=== PATIENT | male | born 1940 | race Caucasian/White ===

== ENCOUNTER → 2017-12-13 | Outpatient (CLI) | payer MEDICAID, OTHER ==
[~2017-12-13] MED LIST: ALLO300T PO; ATEN25TA PO; FINA5TAB4 PO; LISI-167 PO; LOVA40TA2 PO; NABU750T PO
== END | disposition home or self-care (01) ==
LOC: RAD 11:02
PROVIDERS: ATTEND Internal Medicine Cardiovascular Disease
DX: K44.9 Diaphragmatic hernia without obstruction or gangrene (principal); R55 Syncope and collapse; R00.1 Bradycardia, unspecified
CPT/HCPCS: 71046

== ENCOUNTER 2018-06-07 14:27 | Emergency (ER) | payer OTHER ==
[~2018-06-07] VITALS: Ht 172.7 cm; Wt 81.0 kg
[2018-06-07 16:36] VITALS: BP 140/86
== END 2018-06-07 16:39 | disposition home or self-care (01) ==
LOC: ED 16:33
DX: S16.1XXA Strain of muscle, fascia and tendon at neck level, initial encounter (principal); V49.49XA Driver injured in collision with other motor vehicles in traffic accident, initial encounter; Y93.89 Activity, other specified; Y92.89 Other specified places as the place of occurrence of the external cause; Y99.8 Other external cause status; I69.922 Dysarthria following unspecified cerebrovascular disease
CPT/HCPCS: 72050; 72125; 99284

== ENCOUNTER 2019-03-14 08:09 | Inpatient (IN) | payer MEDICARE, OTHER ==
[~2019-03-14] VITALS: Ht 182.9 cm; Wt 77.9 kg
--- NOTE | 2019-03-14 08:15 | NUR ---
PT BIB [facility] FOR VOMITTING X 5 TIMES AND DIARRHEA X 3 TIMES TODAY. HX HTN AND STROKE WITH LEFT LEG WEAKNESS. PT AAO X 4, HYPOTENSIVE AND TACHYCARDIC AND MD AWARE. NEW ORDERS RECEIVED AND IMPLEMMENTED. PT IN GOWN, RESTING IN GURNEY WITH HOB ELEVATED.
[2019-03-14] MEDS ORDERED: ONDANSETRON 2MG/ML, 2ML ONE (08:19)
[2019-03-14] MEDS ORDERED: SODIUM CHLORIDE 0.9% 1,000ML IVBOLUS ONE ×3 (08:30→11:30)
[2019-03-14] MEDS ORDERED: ONDANSETRON 2MG/ML, 2ML IVPush ONE (08:30)
[2019-03-14] MEDS ORDERED: SODIUM CHLORIDE FLUSH 10ML SYR IVF ONE (08:30)
[2019-03-14] MEDS ORDERED: PANTOPRAZOLE 80 MG in SODIUM CHLORIDE 0.9% 50 ML IVPB ONE (08:39)
[2019-03-14] MEDS ORDERED: PANTOPRAZOLE 80 MG in SODIUM CHLORIDE 0.9% 100 ML IV SCH (08:39)
[2019-03-14 08:46] LABS: BASOPHILS # (AUTO) 0.01 x10^3/uL (0-0.1); BASOPHILS % (AUTO) 0 % (0-1); EOSINOPHILS % (AUTO) 0 % (1-7); LYMPHOCYTES # (AUTO) 0.63 x10^3/uL (1-3.4); LYMPHOCYTES % (AUTO) 4 % (22-44); MD NO; MEAN CORPUSCULAR HEMOGLOBIN 31.5 pg (27.5-34.5); MEAN CORPUSCULAR HGB CONC 32.2 g/dL (33.2-36.2); MEAN CORPUSCULAR VOLUME 97.7 fL (81-97); MEAN PLATELET VOLUME 10.8 fL (7.4-10.4); MONOCYTES # (AUTO) 1.42 x10^3/uL (0.2-0.8); MONOCYTES % (AUTO) 9 % (2-9); NEUTROPHILS # (AUTO) 13.92 x10^3/uL (1.8-6.8); NEUTROPHILS % (AUTO) 87 % (42-75); PLATELET COUNT 145 x10^3/uL (130-400); RED BLOOD COUNT 4.68 x10^6/uL (4.38-5.82); RED CELL DISTRIBUTION WIDTH 15.8 % (9.4-14.8)
[2019-03-14 08:53] LABS: ALANINE AMINOTRANSFERASE 18 U/L (12-78); ALBUMIN 4.5 g/dL (3.4-5.0); ANION GAP 12 mmol/L (5-15); CALCIUM 9.8 mg/dL (8.5-10.1); CHLORIDE 86 mmol/L (98-107)
[2019-03-14] MEDS ORDERED: ASPI-515 PO (08:54)
[2019-03-14] MEDS ORDERED: OMEP-110 PO (08:54)
[2019-03-14 08:55] LABS: ALKALINE PHOSPHATASE 86 U/L (45-117); BILIRUBIN,TOTAL 1.3 mg/dL (0.2-1.0); TOTAL PROTEIN 8.2 g/dL (6.4-8.2)
[2019-03-14 09:20] LABS: INTERNATIONAL NORMALIZED RATIO 1.05 (0.93-1.1)
[2019-03-14] MEDS ORDERED: POTASSIUM CHLORIDE 40 MEQ in SODIUM CHLORIDE 0.9% 500 ML IV ONE (09:30)
--- NOTE | 2019-03-14 10:30 | NUR ---
BLOOD CULTURES X 2 DRAWN. 2L BOLUS INFUSING. PROTONIX INFUSING. [address] LEFT NG TUBE INSERTED PER MD ORDER.
[2019-03-14] MEDS ORDERED: SODIUM CHLORIDE 0.9% 1,000 ML IV ONE (10:35)
[2019-03-14] MEDS ORDERED: PIPERACILLIN/TAZO/PMX 3.375GM 50 ML ONE (10:56)
[2019-03-14] MEDS ORDERED: PIPERACILLIN/TAZO/PMX 3.375GM 50 ML IV ONE (11:00)
--- NOTE | 2019-03-14 11:11 | NUR ---
WEIGHT BASED BOLUS FINISHED, ABX INFUSING.
--- NOTE | 2019-03-14 11:49 | NUR ---
YOUSSE[employer] CATHETER PLACED BY THIS RN WITH DEVAN FORTE WITH ASSIST. PRE-OP AT BEDSIDE TO MARKETING OPERATIONS COORDINATOR PT.
[2019-03-14] MEDS ORDERED: FENTANYL PF 250 MCG/5ML ONE (12:11)
[2019-03-14] MEDS ORDERED: MIDAZOLAM 1 MG/ML, 2ML ONE (12:11)
[2019-03-14 12:17] LABS: CULTURE INDICATED? YES; MICROSCOPIC INDICATED
[2019-03-14] MEDS ORDERED: PROPOFOL 10 MG/ML, 20ML ONE (12:26)
[2019-03-14] MEDS ORDERED: SUCCINYLCHOLINE 20 MG/ML, 10ML ONE (12:26)
[2019-03-14] MEDS ORDERED: CEFOTETAN 2 GM ONE (12:26)
[2019-03-14] MEDS ORDERED: ROCURONIUM 10MG/ML,5ML ONE (12:26)
[2019-03-14] MEDS ORDERED: ACETAMINOPHEN 325 MG TABLET PO PRN (13:00)
[2019-03-14] MEDS ORDERED: LACTATED RINGERS 1,000 ML IV SCH (13:00)
[2019-03-14] MEDS ORDERED: METOCLOPRAMIDE 5 MG/ML, 2ML IVPush PRN (13:00)
[2019-03-14] MEDS ORDERED: OXYcodone IR 5MG TABLET PO PRN (13:00)
[2019-03-14] MEDS ORDERED: hydrALAzine 20 MG/ML, 1ML IVPush PRN (13:00)
[2019-03-14] MEDS ORDERED: morphine SULFATE 10 MG/ML, 1ML IVPush PRN (13:00)
[2019-03-14] MEDS ORDERED: ONDANSETRON 2MG/ML, 2ML IVPush PRN (13:00)
[2019-03-14] MEDS ORDERED: HYDROcodone/APAP 7.5-325MG/15ML UDC PO PRN (13:30)
[2019-03-14] MEDS ORDERED: ONDANSETRON ODT 8 MG PO PRN (13:30)
[2019-03-14] MEDS ORDERED: FENTANYL PF 100 MCG/2ML IV PRN (13:30)
[2019-03-14] MEDS ORDERED: EPHEDRINE 50 MG/ML, 1ML IVPush PRN (13:30)
[2019-03-14] MEDS ORDERED: HYDROmorphone 2 MG/ML, 1ML ONE (14:51)
[2019-03-14] MEDS ORDERED: FENTANYL PF 100 MCG/2ML ONE (14:51)
[2019-03-14] MEDS: HYDROmorphone 2 MG/ML, 1ML IVPush PRN ×2 (14:55→15:06)
[2019-03-14] MEDS ORDERED: ALBUMIN HUMAN 5% 250 ML IV ONE (16:30)
[2019-03-14] MEDS ORDERED: HALOPERIDOL 5 MG/ML ONE (16:36)
[2019-03-14] MEDS ORDERED: NOREPINEPHRINE 4 MG in SODIUM CHLORIDE 0.9% 246 ML IV PRN (17:00)
[2019-03-14] MEDS ORDERED: HALOPERIDOL 5 MG/ML IV PRN (17:00)
[2019-03-14] MEDS ORDERED: ALBUMIN HUMAN 5% 500 ML IV ONE (17:00)
[2019-03-14 17:28] LABS: ANION GAP 9 mmol/L (5-15); CALCIUM 7.2 mg/dL (8.5-10.1); CHLORIDE 102 mmol/L (98-107)
[2019-03-14 17:34] LABS: CREATININE 2.96 mg/dL (0.7-1.3); TROPONIN I 0.023 ng/mL (0.000-0.045)
[2019-03-14] MEDS: PIPERACILLIN/TAZO/PMX 2.25GM 50 ML IV SCH (18:31)
[2019-03-14] MEDS: POTASSIUM CHLORIDE 20 MEQ in D5%-0.45% NACL 1,000 ML IV SCH (18:31)
[2019-03-14] MEDS ORDERED: LOVASTATIN 40 MG TABLET PO SCH (21:00)
[2019-03-15] MEDS: PIPERACILLIN/TAZO/PMX 2.25GM 50 ML IV SCH ×3 (01:21→17:32)
[2019-03-15] MEDS: POTASSIUM CHLORIDE 20 MEQ in D5%-0.45% NACL 1,000 ML IV SCH (04:50)
[2019-03-15 05:27] LABS: BASOPHILS % (AUTO) 0 % (0-1); EOSINOPHILS % (AUTO) 0 % (1-7); LYMPHOCYTES # (AUTO) 0.45 x10^3/uL (1-3.4); LYMPHOCYTES % (AUTO) 4 % (22-44); MD NO; MEAN CORPUSCULAR HEMOGLOBIN 32.5 pg (27.5-34.5); MEAN CORPUSCULAR HGB CONC 33.2 g/dL (33.2-36.2); MEAN CORPUSCULAR VOLUME 97.8 fL (81-97); MEAN PLATELET VOLUME 10.9 fL (7.4-10.4); MONOCYTES # (AUTO) 0.69 x10^3/uL (0.2-0.8); MONOCYTES % (AUTO) 6 % (2-9); NEUTROPHILS # (AUTO) 9.65 x10^3/uL (1.8-6.8); NEUTROPHILS % (AUTO) 89 % (42-75); PLATELET COUNT 118 x10^3/uL (130-400); RED CELL DISTRIBUTION WIDTH 15.5 % (9.4-14.8)
[2019-03-15 05:40] LABS: CHLORIDE 103 mmol/L (98-107)
[2019-03-15 05:47] LABS: ALANINE AMINOTRANSFERASE 29 U/L (12-78); ALKALINE PHOSPHATASE 43 U/L (45-117); ANION GAP 4 mmol/L (5-15); BILIRUBIN,TOTAL 1.1 mg/dL (0.2-1.0); CALCIUM 7.3 mg/dL (8.5-10.1); CREATININE 2.12 mg/dL (0.7-1.3); TOTAL PROTEIN 5.4 g/dL (6.4-8.2)
[2019-03-15 06:36] VITALS: BP 100/60
[2019-03-15] MEDS ORDERED: ALLOPURINOL 300 MG TABLET PO SCH (09:00)
[2019-03-15] MEDS ORDERED: LISINOPRIL 40 MG TABLET PO SCH (09:00)
[2019-03-15] MEDS ORDERED: OMEPRAZOLE 20 MG CAPSULE.DR PO SCH (09:00)
[2019-03-15] MEDS ORDERED: FINASTERIDE 5 MG TABLET PO SCH (09:00)
[2019-03-15] MEDS ORDERED: POTASSIUM CHLORIDE 20 MEQ in D5%-0.45% NACL 1,000 ML IV SCH (09:30)
[2019-03-15] MEDS ORDERED: ALBUMIN HUMAN 5% 500 ML IV ONE (09:30)
[2019-03-15] MEDS: ESOMEPRAZOLE 40 MG IV IVPush SCH (10:11)
[2019-03-15] MEDS: HEPARIN 5,000 UNITS/ML, 1ML SQ SCH ×2 (10:16→18:28)
[2019-03-15] MEDS ORDERED: DEXTROSE 70% IV SCH ×2 (11:30→17:00)
[2019-03-15] MEDS ORDERED: SMOF TPN IV SCH ×2 (11:30→17:00)
[2019-03-15] MEDS ORDERED: [UNRECOGNIZED DRUG - OTHER] IV SCH ×2 (11:30→17:00)
[2019-03-15] MEDS ORDERED: METOCLOPRAMIDE 5 MG/ML, 2ML IVPush PRN (11:30)
[2019-03-15] MEDS ORDERED: FAT EMUL IV SCH ×2 (11:30→17:00)
[2019-03-15] MEDS ORDERED: AMINO ACID 10% IV SCH ×2 (11:30→17:00)
[2019-03-15] MEDS ORDERED: FILTER, DISP 1.2 MICRON FOR TPN/PVN IV PRN (17:00)
[2019-03-15] MEDS ORDERED: D5%-0.45% NACL 1,000 ML IV PRN (17:00)
[2019-03-15] MEDS ORDERED: TPN PER PHARMACY MC PRN (17:00)
[2019-03-15] MEDS ORDERED: DEXTROSE 50%, 50ML SYRINGE IVPush PRN (17:00)
[2019-03-15] MEDS ORDERED: DEXTROSE 10% 500 ML IV PRN (17:00)
[2019-03-15] MEDS: INSULIN REGULAR MEDIUM DOSE Q6H X 48HRS SQ-INSULIN SCH (20:10)
[2019-03-16] MEDS: HEPARIN 5,000 UNITS/ML, 1ML SQ SCH ×2 (02:21→10:53)
[2019-03-16] MEDS: PIPERACILLIN/TAZO/PMX 2.25GM 50 ML IV SCH ×2 (02:21→10:08)
[2019-03-16] MEDS: INSULIN REGULAR MEDIUM DOSE Q6H X 48HRS SQ-INSULIN SCH ×4 (02:23→21:00)
[2019-03-16 04:00] VITALS: BP 94/54
[2019-03-16 06:34] LABS: CHLORIDE 107 mmol/L (98-107)
[2019-03-16 06:47] LABS: ANION GAP 5 mmol/L (5-15); CALCIUM 7.9 mg/dL (8.5-10.1); PREALBUMIN 11.2 mg/dL (20.0-40.0); TRIGLYCERIDES 139 mg/dL (50-200)
[2019-03-16 07:24] LABS: BASOPHILS % (AUTO) 0 % (0-1); EOSINOPHILS # (AUTO) 0.01 x10^3/uL (0-0.4); EOSINOPHILS % (AUTO) 0 % (1-7); LYMPHOCYTES # (AUTO) 0.35 x10^3/uL (1-3.4); LYMPHOCYTES % (AUTO) 6 % (22-44); MD NO; MEAN CORPUSCULAR HEMOGLOBIN 32.1 pg (27.5-34.5); MEAN CORPUSCULAR HGB CONC 33.1 g/dL (33.2-36.2); MEAN CORPUSCULAR VOLUME 96.9 fL (81-97); MEAN PLATELET VOLUME 10.8 fL (7.4-10.4); MONOCYTES # (AUTO) 0.46 x10^3/uL (0.2-0.8); MONOCYTES % (AUTO) 8 % (2-9); NEUTROPHILS # (AUTO) 5.34 x10^3/uL (1.8-6.8); NEUTROPHILS % (AUTO) 87 % (42-75); PLATELET COUNT 85 x10^3/uL (130-400); RED BLOOD COUNT 3.17 x10^6/uL (4.38-5.82)
[2019-03-16] MEDS ORDERED: NOREPINEPHRINE 4 MG in SODIUM CHLORIDE 0.9% 246 ML IV PRN (09:30)
[2019-03-16] MEDS: ESOMEPRAZOLE 40 MG IV IVPush SCH (10:04)
[2019-03-16] MEDS ORDERED: POTASSIUM PHOSPHATE 44 MEQ in SODIUM CHLORIDE 0.9% 500 ML IV ONE (12:00)
[2019-03-16] MEDS ORDERED: METOCLOPRAMIDE 5 MG/ML, 2ML IVPush PRN (15:56)
[2019-03-16 16:16] VITALS: BP 110/62
[2019-03-16] MEDS ORDERED: FAT EMUL IV SCH (17:00)
[2019-03-16] MEDS ORDERED: SMOF TPN IV SCH (17:00)
[2019-03-16] MEDS ORDERED: FILTER, DISP 1.2 MICRON FOR TPN/PVN IV PRN (17:00)
[2019-03-16] MEDS ORDERED: DEXTROSE 70% IV SCH (17:00)
[2019-03-16] MEDS ORDERED: [UNRECOGNIZED DRUG - OTHER] IV SCH (17:00)
[2019-03-16] MEDS ORDERED: AMINO ACID 10% IV SCH (17:00)
[2019-03-16 20:41] VITALS: BP 98/62
[2019-03-17 00:52] VITALS: BP 105/63
[2019-03-17] MEDS: INSULIN REGULAR MEDIUM DOSE Q6H X 48HRS SQ-INSULIN SCH ×2 (03:00→08:53)
[2019-03-17 05:21] LABS: MEAN CORPUSCULAR HEMOGLOBIN 31.6 pg (27.5-34.5); MEAN CORPUSCULAR HGB CONC 32.7 g/dL (33.2-36.2); MEAN CORPUSCULAR VOLUME 96.6 fL (81-97); RED BLOOD COUNT 2.99 x10^6/uL (4.38-5.82); RED CELL DISTRIBUTION WIDTH 14.6 % (9.4-14.8)
[2019-03-17 05:29] LABS: ANION GAP 5 mmol/L (5-15); CALCIUM 7.9 mg/dL (8.5-10.1); CHLORIDE 109 mmol/L (98-107); CREATININE 0.97 mg/dL (0.7-1.3)
[2019-03-17 05:58] LABS: BASOPHILS % (AUTO) 0 % (0-1); EOSINOPHILS # (AUTO) 0.01 x10^3/uL (0-0.4); EOSINOPHILS % (AUTO) 0 % (1-7); LYMPHOCYTES # (AUTO) 0.43 x10^3/uL (1-3.4); LYMPHOCYTES % (AUTO) 7 % (22-44); MD SCAN; MEAN PLATELET VOLUME 10.5 fL (7.4-10.4); MONOCYTES # (AUTO) 0.46 x10^3/uL (0.2-0.8); MONOCYTES % (AUTO) 8 % (2-9); NEUTROPHILS # (AUTO) 5.01 x10^3/uL (1.8-6.8); NEUTROPHILS % (AUTO) 85 % (42-75); PLATELET COUNT 95 x10^3/uL (130-400)
[2019-03-17 07:46] VITALS: BP 113/72
[2019-03-17] MEDS: ESOMEPRAZOLE 40 MG IV IVPush SCH (08:52)
[2019-03-17 12:52] VITALS: BP 114/69
[2019-03-17] MEDS ORDERED: AMINO ACID 10% IV SCH (17:00)
[2019-03-17] MEDS ORDERED: FAT EMUL IV SCH (17:00)
[2019-03-17] MEDS ORDERED: [UNRECOGNIZED DRUG - OTHER] IV SCH (17:00)
[2019-03-17] MEDS ORDERED: FILTER, DISP 1.2 MICRON FOR TPN/PVN IV PRN (17:00)
[2019-03-17] MEDS ORDERED: SMOF TPN IV SCH (17:00)
[2019-03-17] MEDS ORDERED: DEXTROSE 70% IV SCH (17:00)
[2019-03-17 19:41] VITALS: BP 104/63
[2019-03-18 00:03] VITALS: BP 114/71
[2019-03-18 04:51] LABS: ANION GAP 4 mmol/L (5-15); CALCIUM 8.1 mg/dL (8.5-10.1); CHLORIDE 108 mmol/L (98-107); CREATININE 0.96 mg/dL (0.7-1.3)
[2019-03-18 06:39] VITALS: BP 114/73
[2019-03-18] MEDS ORDERED: MAGNESIUM SULFATE PMX 2GM/50ML 50 ML IV ONE (07:00)
[2019-03-18 08:12] LABS: BASOPHILS # (AUTO) 0.01 x10^3/uL (0-0.1); BASOPHILS % (AUTO) 0 % (0-1); EOSINOPHILS # (AUTO) 0.01 x10^3/uL (0-0.4); EOSINOPHILS % (AUTO) 0 % (1-7); LYMPHOCYTES # (AUTO) 0.42 x10^3/uL (1-3.4); LYMPHOCYTES % (AUTO) 5 % (22-44); MD NO; MEAN CORPUSCULAR HEMOGLOBIN 31.5 pg (27.5-34.5); MEAN CORPUSCULAR HGB CONC 32.7 g/dL (33.2-36.2); MEAN CORPUSCULAR VOLUME 96.3 fL (81-97); MEAN PLATELET VOLUME 9.8 fL (7.4-10.4); MONOCYTES # (AUTO) 0.71 x10^3/uL (0.2-0.8); MONOCYTES % (AUTO) 8 % (2-9); NEUTROPHILS # (AUTO) 7.79 x10^3/uL (1.8-6.8); NEUTROPHILS % (AUTO) 87 % (42-75); PLATELET COUNT 117 x10^3/uL (130-400); RED BLOOD COUNT 3.34 x10^6/uL (4.38-5.82); RED CELL DISTRIBUTION WIDTH 14.7 % (9.4-14.8)
[2019-03-18] MEDS: INSULIN REGULAR MEDIUM DOSE QDAY SQ-INSULIN SCH (08:50)
[2019-03-18 13:35] VITALS: BP 115/70
[2019-03-18] MEDS: FILTER, DISP 1.2 MICRON FOR TPN/PVN IV PRN (16:54)
[2019-03-18] MEDS ORDERED: [UNRECOGNIZED DRUG - OTHER] IV SCH (17:00)
[2019-03-18] MEDS ORDERED: DEXTROSE 70% IV SCH (17:00)
[2019-03-18] MEDS ORDERED: FAT EMUL IV SCH (17:00)
[2019-03-18] MEDS ORDERED: AMINO ACID 10% IV SCH (17:00)
[2019-03-18] MEDS ORDERED: SMOF TPN IV SCH (17:00)
[2019-03-18 20:00] VITALS: BP 120/76
[2019-03-19 01:02] VITALS: BP 124/79
[2019-03-19 04:50] LABS: ANION GAP 3 mmol/L (5-15); CALCIUM 8.4 mg/dL (8.5-10.1); CHLORIDE 104 mmol/L (98-107)
[2019-03-19 04:51] LABS: CREATININE 0.96 mg/dL (0.7-1.3)
[2019-03-19 06:40] VITALS: BP 121/72
[2019-03-19] MEDS: INSULIN REGULAR MEDIUM DOSE QDAY SQ-INSULIN SCH (09:00)
[2019-03-19] MEDS: FINASTERIDE 5 MG TABLET PO SCH (09:11)
[2019-03-19] MEDS ORDERED: [UNRECOGNIZED DRUG - OTHER] IV SCH (17:00)
[2019-03-19] MEDS ORDERED: FAT EMUL IV SCH (17:00)
[2019-03-19] MEDS ORDERED: AMINO ACID 10% IV SCH (17:00)
[2019-03-19] MEDS ORDERED: SMOF TPN IV SCH (17:00)
[2019-03-19] MEDS ORDERED: DEXTROSE 70% IV SCH (17:00)
[2019-03-19 17:45] VITALS: BP 113/72
[2019-03-19 19:51] VITALS: BP 114/70
[2019-03-19] MEDS: LOVASTATIN 40 MG TABLET PO SCH (21:27)
[2019-03-20 01:24] VITALS: BP 129/74
[2019-03-20] MEDS: ASPIRIN 81 MG TABLET EC PO SCH (06:00)
[2019-03-20 06:28] LABS: ANION GAP 8 mmol/L (5-15); CALCIUM 8.4 mg/dL (8.5-10.1); CHLORIDE 106 mmol/L (98-107); CREATININE 0.92 mg/dL (0.7-1.3)
[2019-03-20] MEDS ORDERED: ACETAMINOPHEN 325 MG TABLET PO PRN (07:00)
[2019-03-20] MEDS ORDERED: HYDROcodone/APAP 5/325 TABLET PO PRN (07:00)
[2019-03-20 08:49] VITALS: BP 120/75
[2019-03-20] MEDS: INSULIN REGULAR MEDIUM DOSE QDAY SQ-INSULIN SCH (09:00)
[2019-03-20] MEDS: FINASTERIDE 5 MG TABLET PO SCH (14:52)
[2019-03-20 15:35] VITALS: BP 157/93
[2019-03-20] MEDS ORDERED: [UNRECOGNIZED DRUG - OTHER] IV SCH (17:00)
[2019-03-20] MEDS ORDERED: DEXTROSE 70% IV SCH (17:00)
[2019-03-20] MEDS ORDERED: AMINO ACID 10% IV SCH (17:00)
[2019-03-20] MEDS ORDERED: SMOF TPN IV SCH (17:00)
[2019-03-20] MEDS ORDERED: FAT EMUL IV SCH (17:00)
[2019-03-20 19:48] VITALS: BP 100/64
[2019-03-20] MEDS: LOVASTATIN 40 MG TABLET PO SCH (23:20)
[2019-03-21 01:20] VITALS: BP 111/60
[2019-03-21 05:34] LABS: ANION GAP 10 mmol/L (5-15); CALCIUM 8.3 mg/dL (8.5-10.1); CHLORIDE 102 mmol/L (98-107)
[2019-03-21 05:35] LABS: CREATININE 1.03 mg/dL (0.7-1.3)
[2019-03-21] MEDS: ASPIRIN 81 MG TABLET EC PO SCH (05:41)
[2019-03-21 07:56] VITALS: BP 118/65
[2019-03-21] MEDS: INSULIN REGULAR MEDIUM DOSE QDAY SQ-INSULIN SCH (09:00)
[2019-03-21] MEDS: FINASTERIDE 5 MG TABLET PO SCH (09:00)
[2019-03-21 13:20] VITALS: BP 120/69
[2019-03-21] MEDS ORDERED: AMINO ACID 10% IV SCH (17:00)
[2019-03-21] MEDS ORDERED: FAT EMUL IV SCH (17:00)
[2019-03-21] MEDS ORDERED: [UNRECOGNIZED DRUG - OTHER] IV SCH (17:00)
[2019-03-21] MEDS ORDERED: SMOF TPN IV SCH (17:00)
[2019-03-21] MEDS ORDERED: DEXTROSE 70% IV SCH (17:00)
[2019-03-21] MEDS: FILTER, DISP 1.2 MICRON FOR TPN/PVN IV PRN (17:11)
[2019-03-21 19:50] VITALS: BP 131/76
[2019-03-21] MEDS ORDERED: SODIUM CHLORIDE 0.9%, 500ML IVBOLUS ONE (20:30)
[2019-03-21] MEDS ORDERED: OXYMETAZOLINE NASAL SPRAY 0.05%, 15ML NAS ONE (20:30)
[2019-03-21] MEDS ORDERED: OXYMETAZOLINE NASAL SPRAY 0.05%,30ML NAS ONE (20:30)
[2019-03-21] MEDS: LOVASTATIN 40 MG TABLET PO SCH (22:10)
[2019-03-22 01:20] VITALS: BP 110/65
[2019-03-22 05:54] LABS: CHLORIDE 105 mmol/L (98-107)
[2019-03-22 06:16] LABS: ANION GAP 6 mmol/L (5-15); CALCIUM 8.1 mg/dL (8.5-10.1); PREALBUMIN 11.8 mg/dL (20.0-40.0)
[2019-03-22 06:44] VITALS: BP 105/59
[2019-03-22] MEDS: INSULIN REGULAR MEDIUM DOSE QDAY SQ-INSULIN SCH (07:00)
[2019-03-22] MEDS: ASPIRIN 81 MG TABLET EC PO SCH (09:24)
[2019-03-22] MEDS: FINASTERIDE 5 MG TABLET PO SCH (09:24)
[2019-03-22 12:34] VITALS: BP 109/70
[2019-03-22] MEDS: [UNRECOGNIZED DRUG - OTHER] IV SCH (16:40)
[2019-03-22] MEDS: DEXTROSE 70% IV SCH (16:40)
[2019-03-22] MEDS: AMINO ACID 10% IV SCH (16:40)
[2019-03-22] MEDS: SMOF TPN IV SCH (16:40)
[2019-03-22] MEDS: FAT EMUL IV SCH (16:40)
[2019-03-22] MEDS ORDERED: FILTER, DISP 1.2 MICRON FOR TPN/PVN IV PRN (17:00)
[2019-03-22 19:33] VITALS: BP 102/57
[2019-03-22] MEDS: LOVASTATIN 40 MG TABLET PO SCH (20:51)
[2019-03-23 01:29] VITALS: BP 105/63
[2019-03-23 06:02] LABS: MEAN CORPUSCULAR HEMOGLOBIN 30.9 pg (27.5-34.5); MEAN CORPUSCULAR HGB CONC 32.7 g/dL (33.2-36.2); MEAN CORPUSCULAR VOLUME 94.6 fL (81-97); MEAN PLATELET VOLUME 9.9 fL (7.4-10.4); PLATELET COUNT 209 x10^3/uL (130-400); RED BLOOD COUNT 3.02 x10^6/uL (4.38-5.82); RED CELL DISTRIBUTION WIDTH 14.5 % (9.4-14.8)
[2019-03-23] MEDS: ASPIRIN 81 MG TABLET EC PO SCH (06:02)
[2019-03-23 06:07] LABS: ANION GAP 6 mmol/L (5-15); CALCIUM 7.9 mg/dL (8.5-10.1); CHLORIDE 109 mmol/L (98-107)
[2019-03-23 06:08] LABS: CREATININE 0.83 mg/dL (0.7-1.3)
[2019-03-23 06:48] VITALS: BP 110/65
[2019-03-23 06:53] LABS: MD YES
[2019-03-23 06:55] LABS: BAND#(MANUAL) 0.28 x10^3/uL; BANDS%(MANUAL) 2 % (0-7); LYMPH#(MANUAL) 0.43 x10^3/uL (1-3.4); LYMPHS% (MANUAL) 3 % (22-44); METAMYELOCYTES# (MANUAL) 0.28 x10^3/uL (0-0); METAMYELOCYTES% (MANUAL) 2 % (0-1); MONOS#(MANUAL) 1.14 x10^3/uL (0.3-2.7); MONOS% (MANUAL) 8 % (2-9)
[2019-03-23 06:56] LABS: MYELOCYTES# (MANUAL) 0.14 x10^3/uL (0-0); MYELOCYTES% (MANUAL) 1 % (0-0); SEGS% (MANUAL) 84 % (42-75)
[2019-03-23 06:57] LABS: <PLATELET ESTIMATE> ADEQUATE; <PLT MORPHOLOGY> NORMAL PLT MORPH; <RBC MORPHOLOGY> NORMAL
[2019-03-23] MEDS: FINASTERIDE 5 MG TABLET PO SCH (09:45)
[2019-03-23 12:43] VITALS: BP 98/61
[2019-03-23 12:59] LABS: MICROSCOPIC AUTO
[2019-03-23 13:06] LABS: CULTURE INDICATED? NO
[2019-03-23] MEDS: [UNRECOGNIZED DRUG - OTHER] IV SCH (17:00)
[2019-03-23] MEDS: AMINO ACID 10% IV SCH (17:00)
[2019-03-23] MEDS: SMOF TPN IV SCH (17:00)
[2019-03-23] MEDS: FAT EMUL IV SCH (17:00)
[2019-03-23] MEDS: DEXTROSE 70% IV SCH (17:00)
[2019-03-23 19:08] VITALS: BP 105/63
[2019-03-23] MEDS: LOVASTATIN 40 MG TABLET PO SCH (21:07)
[2019-03-24 02:47] VITALS: BP 115/70
[2019-03-24] MEDS: ASPIRIN 81 MG TABLET EC PO SCH (05:44)
[2019-03-24 05:50] LABS: BASOPHILS # (AUTO) 0.01 x10^3/uL (0-0.1); BASOPHILS % (AUTO) 0 % (0-1); EOSINOPHILS % (AUTO) 0 % (1-7); LYMPHOCYTES # (AUTO) 1.03 x10^3/uL (1-3.4); LYMPHOCYTES % (AUTO) 9 % (22-44); MD NO; MEAN CORPUSCULAR HEMOGLOBIN 32.1 pg (27.5-34.5); MEAN CORPUSCULAR HGB CONC 33.3 g/dL (33.2-36.2); MEAN CORPUSCULAR VOLUME 96.4 fL (81-97); MEAN PLATELET VOLUME 9.7 fL (7.4-10.4); MONOCYTES # (AUTO) 0.77 x10^3/uL (0.2-0.8); MONOCYTES % (AUTO) 6 % (2-9); NEUTROPHILS # (AUTO) 10.11 x10^3/uL (1.8-6.8); NEUTROPHILS % (AUTO) 85 % (42-75); PLATELET COUNT 257 x10^3/uL (130-400); RED BLOOD COUNT 2.91 x10^6/uL (4.38-5.82); RED CELL DISTRIBUTION WIDTH 14.5 % (9.4-14.8)
[2019-03-24 05:58] LABS: ANION GAP 7 mmol/L (5-15); CALCIUM 7.9 mg/dL (8.5-10.1); CHLORIDE 107 mmol/L (98-107); CREATININE 0.81 mg/dL (0.7-1.3)
[2019-03-24 07:04] VITALS: BP 111/62
[2019-03-24] MEDS: FINASTERIDE 5 MG TABLET PO SCH (09:18)
[2019-03-24 12:57] VITALS: BP 99/62
[2019-03-24 20:07] VITALS: BP 116/66
[2019-03-24] MEDS: LOVASTATIN 40 MG TABLET PO SCH (23:00)
[2019-03-25 00:18] VITALS: BP 113/68
[2019-03-25] MEDS: ASPIRIN 81 MG TABLET EC PO SCH (05:14)
[2019-03-25 05:43] LABS: BASOPHILS # (AUTO) 0.04 x10^3/uL (0-0.1); BASOPHILS % (AUTO) 0 % (0-1); EOSINOPHILS % (AUTO) 0 % (1-7); LYMPHOCYTES # (AUTO) 1.05 x10^3/uL (1-3.4); LYMPHOCYTES % (AUTO) 8 % (22-44); MD NO; MEAN CORPUSCULAR HGB CONC 33.6 g/dL (33.2-36.2); MEAN CORPUSCULAR VOLUME 95.1 fL (81-97); MEAN PLATELET VOLUME 9.3 fL (7.4-10.4); MONOCYTES # (AUTO) 0.72 x10^3/uL (0.2-0.8); MONOCYTES % (AUTO) 6 % (2-9); NEUTROPHILS # (AUTO) 10.98 x10^3/uL (1.8-6.8); NEUTROPHILS % (AUTO) 86 % (42-75); PLATELET COUNT 309 x10^3/uL (130-400); RED BLOOD COUNT 3.04 x10^6/uL (4.38-5.82); RED CELL DISTRIBUTION WIDTH 14.2 % (9.4-14.8)
[2019-03-25 05:44] LABS: ANION GAP 6 mmol/L (5-15); CALCIUM 7.9 mg/dL (8.5-10.1); CHLORIDE 106 mmol/L (98-107); CREATININE 0.87 mg/dL (0.7-1.3)
[2019-03-25 07:50] VITALS: BP 106/64
[2019-03-25] MEDS: FINASTERIDE 5 MG TABLET PO SCH (07:58)
[2019-03-25 12:16] VITALS: BP 102/67
== END 2019-03-25 16:53 | disposition home health service (06) | DRG 853 ==
LOC: ED 09:14 → EDIP 10:33 → CCU 15:24 → 4NOR 03-16 16:10
PROVIDERS: ADMIT Family Medicine; ATTEND Family Medicine
PROC: 0DS60ZZ Reposition Stomach, Open Approach (ICD-10-PCS; 2019-03-14)
PROC: 0DH60UZ Insertion of Feeding Device into Stomach, Open Approach (ICD-10-PCS; 2019-03-14)
PROC: 02HV33Z Insertion of Infusion Device into Superior Vena Cava, Percutaneous Approach (ICD-10-PCS; 2019-03-14)
PROC: B548ZZA Ultrasonography of Superior Vena Cava, Guidance (ICD-10-PCS; 2019-03-14)
PROC: 03HY32Z Insertion of Monitoring Device into Upper Artery, Percutaneous Approach (ICD-10-PCS; 2019-03-14)
PROC: 0DNL0ZZ Release Transverse Colon, Open Approach (ICD-10-PCS; principal; 2019-03-14 12:30)
DX: A41.9 Sepsis, unspecified organism (principal); R65.21 Severe sepsis with septic shock; N17.9 Acute kidney failure, unspecified; K31.5 Obstruction of duodenum; K44.0 Diaphragmatic hernia with obstruction, without gangrene; E87.4 Mixed disorder of acid-base balance; D62 Acute posthemorrhagic anemia; I69.354 Hemiplegia and hemiparesis following cerebral infarction affecting left non-dominant side; K31.1 Adult hypertrophic pyloric stenosis; E78.00 Pure hypercholesterolemia, unspecified; E78.5 Hyperlipidemia, unspecified; E83.39 Other disorders of phosphorus metabolism; E86.0 Dehydration; E87.6 Hypokalemia; I11.9 Hypertensive heart disease without heart failure; K21.9 Gastro-esophageal reflux disease without esophagitis; Z66 Do not resuscitate; K31.84 Gastroparesis; K66.0 Peritoneal adhesions (postprocedural) (postinfection); M10.9 Gout, unspecified; N40.0 Benign prostatic hyperplasia without lower urinary tract symptoms
CPT/HCPCS: 36415; 36573; 71045; 74176; 80048; 80053; 81001; 82436; 82570; 82800; 82803; 82962; 83605; 83690; 83735; 84100; 84133; 84134; 84300; 84478; 84484; 85014; 85018; 85025; 85610; 87040; 87081; 87086; 93005; 93306; 96365; 96366; 96368; 96375; B4087; G0378; J0610; J1170; J1644; J2250; J2405; J2543; J2704; J3010; J3475; J3480; P9041; P9045; C1751; C9113; J0330; J1630; J3420; J3490; J7030; J7040; J7050

== ENCOUNTER 2019-03-26 13:04 | Inpatient (IN) | payer MEDICARE ==
[~2019-03-26] VITALS: Ht 182.9 cm; Wt 91.8 kg
[~2019-03-26 13:04] MED LIST changes: +ASPI-515 PO; +OMEP-110 PO
--- NOTE | 2019-03-26 13:13 | NUR ---
Pt presents to ED by EMS with coffee ground emesis three times. Pt had a hiatal hernia repair one week ago with wound vac in place one week ago. Pt left hospital yesterday and started having emesis today. Pt resting on gurney connected to NIBP cuff, continous pulse ox, and nurse monitoring. Both bedrails up for safety measures. Call light within reach. NADN. Pt has spouse at bedside. ED MD at bedside. Pt ann sob or trauma. Pt c/o dizziness and cp.
[2019-03-26] MEDS ORDERED: PANTOPRAZOLE 80 MG in SODIUM CHLORIDE 0.9% 50 ML IVPB ONE (13:15)
--- NOTE | 2019-03-26 13:28 | NUR ---
Yellow lab slip sent to pharmacy requesting medications per EMAR.
[2019-03-26] MEDS ORDERED: SODIUM CHLORIDE FLUSH 10ML SYR IVF ONE (13:30)
[2019-03-26] MEDS ORDERED: SODIUM CHLORIDE 0.9% 1,000ML IVBOLUS ONE ×3 (13:30→17:30)
[2019-03-26] MEDS ORDERED: PANTOPRAZOLE 80 MG in SODIUM CHLORIDE 0.9% 100 ML IV SCH (13:45)
[2019-03-26 13:51] LABS: BASOPHILS # (AUTO) 0.01 x10^3/uL (0-0.1); BASOPHILS % (AUTO) 0 % (0-1); EOSINOPHILS % (AUTO) 0 % (1-7); LYMPHOCYTES % (AUTO) 6 % (22-44); MD NO; MEAN CORPUSCULAR HEMOGLOBIN 31.2 pg (27.5-34.5); MEAN CORPUSCULAR HGB CONC 32.5 g/dL (33.2-36.2); MEAN CORPUSCULAR VOLUME 96.1 fL (81-97); MEAN PLATELET VOLUME 8.9 fL (7.4-10.4); MONOCYTES # (AUTO) 0.76 x10^3/uL (0.2-0.8); MONOCYTES % (AUTO) 5 % (2-9); NEUTROPHILS # (AUTO) 12.98 x10^3/uL (1.8-6.8); NEUTROPHILS % (AUTO) 89 % (42-75); PLATELET COUNT 363 x10^3/uL (130-400); RED BLOOD COUNT 2.42 x10^6/uL (4.38-5.82); RED CELL DISTRIBUTION WIDTH 14.8 % (9.4-14.8)
[2019-03-26 13:53] LABS: INTERNATIONAL NORMALIZED RATIO 1.13 (0.93-1.1); PROTHROMBIN TIME 11.8 Seconds (9.6-11.5)
[2019-03-26 13:55] LABS: ALANINE AMINOTRANSFERASE 14 U/L (12-78); ALBUMIN 1.9 g/dL (3.4-5.0); ANION GAP 9 mmol/L (5-15); CALCIUM 7.5 mg/dL (8.5-10.1); CHLORIDE 107 mmol/L (98-107); CREATININE 1.21 mg/dL (0.7-1.3)
[2019-03-26 14:00] LABS: ALKALINE PHOSPHATASE 66 U/L (45-117); BILIRUBIN,TOTAL 0.4 mg/dL (0.2-1.0); TOTAL PROTEIN 4.6 g/dL (6.4-8.2); TROPONIN I < 0.015 ng/mL (0.000-0.045)
--- NOTE | 2019-03-26 14:01 | NUR ---
Purple slip sent to blood bank for request.
--- NOTE | 2019-03-26 14:46 | NUR ---
Emergency blood release yellow slip sent to Blood Bank.
--- NOTE | 2019-03-26 14:54 | NUR ---
Attempted to call and provide report to floor RN. Floor RN unable to be located at time of call. Will call back.
[2019-03-26] MEDS ORDERED: ENALAPRILAT 1.25 MG/ML, 2ML IVPush PRN (15:00)
[2019-03-26] MEDS ORDERED: ONDANSETRON 2MG/ML, 2ML IVPush PRN (15:00)
[2019-03-26] MEDS ORDERED: ACETAMINOPHEN 325 MG TABLET PO PRN (15:00)
[2019-03-26] MEDS ORDERED: morphine SULFATE 10 MG/ML, 1ML IVPush PRN (15:00)
--- NOTE | 2019-03-26 15:03 | NUR ---
Provided report to JANN Pierson. All questions answered. Pt ready to transfer to floor from ED.
--- NOTE | 2019-03-26 15:30 | NUR ---
Patient transfered to floor from ED and left with all personal belongings.
--- NOTE | 2019-03-26 15:34 | NUR ---
LATE NOTE ENTRY FOR 1415: Emergency blood release of 2 packed RBC arrived to ED and provided over 15 minutes. 2 RN check and verification of blood, please see transfusions. Vital signs documentation every 5 minutes during transfussion, please see vital signs charting.
[2019-03-26] MEDS: SODIUM CHLORIDE 0.9% 1,000 ML IV SCH ×2 (15:46→20:29)
[2019-03-26] MEDS: SUCRALFATE 1 GM/10 ML UDC PO SCH ×2 (16:18→20:54)
[2019-03-26 16:19] VITALS: BP 95/40
[2019-03-26] MEDS: PANTOPRAZOLE 80 MG in SODIUM CHLORIDE 0.9% 100 ML IV SCH (20:29)
[2019-03-26] MEDS ORDERED: PANTOPRAZOLE 40 MG IV IVPush SCH (21:00)
[2019-03-27] VITALS (9 sets, daily range): BP systolic 82–92; BP diastolic 39–51
[2019-03-27] MEDS: ALBUMIN HUMAN 25% 100 ML IV SCH ×3 (00:13→17:28)
[2019-03-27] MEDS ORDERED: HYDROCORTISONE 100 MG INJ. ONE (02:27)
[2019-03-27] MEDS ORDERED: SODIUM CHLORIDE 0.9%, 500ML IVBOLUS ONE ×2 (02:30→08:10)
[2019-03-27] MEDS: HYDROCORTISONE 100 MG INJ. IVPush SCH ×3 (02:33→17:28)
[2019-03-27 03:06] LABS: ANION GAP 7 mmol/L (5-15); CHLORIDE 113 mmol/L (98-107); CREATININE 0.98 mg/dL (0.7-1.3)
[2019-03-27 03:13] LABS: MEAN CORPUSCULAR HEMOGLOBIN 30.6 pg (27.5-34.5); MEAN CORPUSCULAR HGB CONC 32.6 g/dL (33.2-36.2); MEAN PLATELET VOLUME 8.6 fL (7.4-10.4); PLATELET COUNT 249 x10^3/uL (130-400); RED BLOOD COUNT 2.36 x10^6/uL (4.38-5.82); RED CELL DISTRIBUTION WIDTH 14.9 % (9.4-14.8)
[2019-03-27] MEDS: SODIUM CHLORIDE 0.9% 1,000 ML IV SCH ×3 (03:27→22:37)
[2019-03-27 03:29] LABS: BASOPHILS # (AUTO) 0.02 x10^3/uL (0-0.1); BASOPHILS % (AUTO) 0 % (0-1); EOSINOPHILS # (AUTO) 0.02 x10^3/uL (0-0.4); EOSINOPHILS % (AUTO) 0 % (1-7); LYMPHOCYTES # (AUTO) 0.89 x10^3/uL (1-3.4); LYMPHOCYTES % (AUTO) 9 % (22-44); MD SCAN; MONOCYTES # (AUTO) 0.68 x10^3/uL (0.2-0.8); MONOCYTES % (AUTO) 7 % (2-9); NEUTROPHILS # (AUTO) 8.64 x10^3/uL (1.8-6.8); NEUTROPHILS % (AUTO) 84 % (42-75)
[2019-03-27] MEDS: PANTOPRAZOLE 80 MG in SODIUM CHLORIDE 0.9% 100 ML IV SCH ×2 (07:01→17:28)
[2019-03-27] MEDS: SUCRALFATE 1 GM/10 ML UDC PO SCH ×4 (07:02→21:42)
[2019-03-27] MEDS ORDERED: POTASSIUM PHOSPHATE 30 MMOL in SODIUM CHLORIDE 0.9% 500 ML IV ONE (09:30)
[2019-03-27] MEDS ORDERED: MAGNESIUM SULFATE PMX 2GM/50ML 50 ML IV ONE (09:30)
[2019-03-27] MEDS ORDERED: NOREPINEPHRINE 4 MG in SODIUM CHLORIDE 0.9% 246 ML IV PRN (10:00)
[2019-03-27] MEDS ORDERED: EPHEDRINE 50 MG/ML, 1ML ONE (14:12)
[2019-03-27] MEDS ORDERED: PROPOFOL 10 MG/ML, 20ML ONE (14:12)
[2019-03-27] MEDS ORDERED: EPINEPHRINE SYRINGE 0.1 MG/ML, 10ML ONE (15:27)
[2019-03-27] MEDS ORDERED: SODIUM BICARB 8.4%, 50ML SYRINGE ONE (22:22)
[2019-03-28] MEDS: HYDROCORTISONE 100 MG INJ. IVPush SCH ×2 (02:44→14:30)
[2019-03-28] MEDS: PANTOPRAZOLE 80 MG in SODIUM CHLORIDE 0.9% 100 ML IV SCH ×3 (02:44→23:25)
[2019-03-28 03:00] LABS: ALANINE AMINOTRANSFERASE 11 U/L (12-78); ALBUMIN 1.9 g/dL (3.4-5.0); ANION GAP 7 mmol/L (5-15); CALCIUM 6.3 mg/dL (8.5-10.1); CHLORIDE 122 mmol/L (98-107); CREATININE 0.66 mg/dL (0.7-1.3)
[2019-03-28 03:03] LABS: ALKALINE PHOSPHATASE 33 U/L (45-117); BILIRUBIN,TOTAL 0.7 mg/dL (0.2-1.0); TOTAL PROTEIN 3.6 g/dL (6.4-8.2)
[2019-03-28 04:00] VITALS: BP 102/51
[2019-03-28] MEDS ORDERED: POTASSIUM CHLORIDE 40 MEQ in SODIUM CHLORIDE 0.9% 500 ML IV ONE (05:30)
[2019-03-28] MEDS: SODIUM CHLORIDE 0.9% 1,000 ML IV SCH (06:48)
[2019-03-28] MEDS: SUCRALFATE 1 GM/10 ML UDC PO SCH ×4 (06:49→19:56)
[2019-03-28] MEDS ORDERED: MAGNESIUM SULFATE PMX 2GM/50ML 50 ML IV ONE (07:00)
[2019-03-28] MEDS: D5%-0.45% NACL 1,000 ML IV SCH ×2 (08:52→23:31)
--- NOTE | 2019-03-28 12:02 | NUR ---
TF GOAL: VITAL AF 1.2 @ 80ML/HR
[2019-03-28] MEDS ORDERED: OMNIPAQUE 350 MG/ML, 100ML BOTTLE ONE (13:35)
[2019-03-28 14:17] VITALS: BP 105/63
[2019-03-28 19:45] VITALS: BP 112/73
[2019-03-29 01:14] VITALS: BP 106/66
[2019-03-29] MEDS: HYDROCORTISONE 100 MG INJ. IVPush SCH (02:02)
[2019-03-29 05:03] LABS: ALBUMIN 2.4 g/dL (3.4-5.0); ANION GAP 6 mmol/L (5-15); CALCIUM 7.6 mg/dL (8.5-10.1); CHLORIDE 117 mmol/L (98-107); CREATININE 0.83 mg/dL (0.7-1.3)
[2019-03-29] MEDS ORDERED: POTASSIUM CHLORIDE 40 MEQ in SODIUM CHLORIDE 0.9% 500 ML IV ONE (06:00)
[2019-03-29] MEDS: SUCRALFATE 1 GM/10 ML UDC PO SCH ×4 (06:12→22:07)
[2019-03-29 07:30] VITALS: BP 113/73
[2019-03-29] MEDS ORDERED: SODIUM PHOSPHATE 20 MMOL in SODIUM CHLORIDE 0.9% 500 ML IV ONE (08:00)
[2019-03-29] MEDS ORDERED: HYDROCORTISONE 100 MG INJ. IVPush SCH (09:00)
[2019-03-29] MEDS: PANTOPRAZOLE 80 MG in SODIUM CHLORIDE 0.9% 100 ML IV SCH (09:27)
[2019-03-29 13:30] VITALS: BP 119/77
[2019-03-29 19:00] VITALS: BP 108/65
[2019-03-29] MEDS: PANTOPRAZOLE 40 MG IV IVPush SCH (22:17)
[2019-03-30 01:35] VITALS: BP 100/59
[2019-03-30 06:36] LABS: ALANINE AMINOTRANSFERASE 12 U/L (12-78); ALBUMIN 2.2 g/dL (3.4-5.0); ANION GAP 5 mmol/L (5-15); CALCIUM 7.3 mg/dL (8.5-10.1); CHLORIDE 116 mmol/L (98-107); CREATININE 0.85 mg/dL (0.7-1.3)
[2019-03-30 06:38] LABS: ALKALINE PHOSPHATASE 64 U/L (45-117); BILIRUBIN,TOTAL 0.6 mg/dL (0.2-1.0); TOTAL PROTEIN 4.3 g/dL (6.4-8.2)
[2019-03-30 07:20] VITALS: BP 106/63
[2019-03-30] MEDS: SUCRALFATE 1 GM/10 ML UDC PO SCH ×4 (08:07→21:53)
[2019-03-30] MEDS: D5%-0.45% NACL 1,000 ML IV SCH (08:08)
[2019-03-30] MEDS: HYDROCORTISONE 100 MG INJ. IVPush SCH (09:36)
[2019-03-30] MEDS: PANTOPRAZOLE 40 MG IV IVPush SCH (09:36)
[2019-03-30] MEDS ORDERED: POTASSIUM CHLORIDE 40 MEQ in SODIUM CHLORIDE 0.9% 500 ML IV ONE (12:00)
[2019-03-30 14:00] VITALS: BP 118/73
[2019-03-30] MEDS: PANTOPROZOLE 40MG TABLET PO SCH (18:10)
[2019-03-30 20:08] VITALS: BP 115/68
[2019-03-31 01:09] VITALS: BP 114/65
[2019-03-31 03:52] LABS: MEAN CORPUSCULAR HEMOGLOBIN 31.5 pg (27.5-34.5); MEAN CORPUSCULAR HGB CONC 33.1 g/dL (33.2-36.2); MEAN CORPUSCULAR VOLUME 95.3 fL (81-97); MEAN PLATELET VOLUME 7.7 fL (7.4-10.4); PLATELET COUNT 230 x10^3/uL (130-400); RED BLOOD COUNT 3.17 x10^6/uL (4.38-5.82); RED CELL DISTRIBUTION WIDTH 15.8 % (9.4-14.8)
[2019-03-31 04:04] LABS: ALBUMIN 2.1 g/dL (3.4-5.0); ANION GAP 6 mmol/L (5-15); CALCIUM 7.3 mg/dL (8.5-10.1); CHLORIDE 112 mmol/L (98-107)
[2019-03-31 04:06] LABS: CREATININE 0.89 mg/dL (0.7-1.3)
[2019-03-31 04:09] LABS: BASOPHILS # (AUTO) 0.02 x10^3/uL (0-0.1); BASOPHILS % (AUTO) 0 % (0-1); EOSINOPHILS # (AUTO) 0.09 x10^3/uL (0-0.4); EOSINOPHILS % (AUTO) 1 % (1-7); LYMPHOCYTES # (AUTO) 0.84 x10^3/uL (1-3.4); LYMPHOCYTES % (AUTO) 13 % (22-44); MD SCAN; MONOCYTES # (AUTO) 0.39 x10^3/uL (0.2-0.8); MONOCYTES % (AUTO) 6 % (2-9); NEUTROPHILS # (AUTO) 5.19 x10^3/uL (1.8-6.8); NEUTROPHILS % (AUTO) 79 % (42-75)
[2019-03-31] MEDS: PANTOPROZOLE 40MG TABLET PO SCH (05:59)
[2019-03-31] MEDS: SUCRALFATE 1 GM/10 ML UDC PO SCH ×4 (05:59→21:23)
[2019-03-31] MEDS: D5%-0.45% NACL 1,000 ML IV SCH (05:59)
[2019-03-31] MEDS ORDERED: POTASSIUM PHOSPHATE 44 MEQ in SODIUM CHLORIDE 0.9% 500 ML IV ONE ×2 (06:30→14:00)
[2019-03-31 07:58] VITALS: BP 113/64
[2019-03-31] MEDS: HYDROCORTISONE 100 MG INJ. IVPush SCH (10:32)
[2019-03-31 13:25] VITALS: BP 130/77
[2019-03-31] MEDS ORDERED: POLYETHYLENE GLYCOL 17 GM PACKET NG ONE (13:30)
[2019-03-31] MEDS ORDERED: PANTOPROZOLE 40MG TABLET PO SCH (17:00)
[2019-03-31 19:04] VITALS: BP 125/71
[2019-04-01 01:22] VITALS: BP 113/61
[2019-04-01] MEDS: OMEPRAZOLE 20 MG CAPSULE.DR PO SCH ×3 (05:34→20:22)
[2019-04-01] MEDS ORDERED: MAGNESIUM SULFATE PMX 2GM/50ML 50 ML IV ONE (07:00)
[2019-04-01] MEDS: SUCRALFATE 1 GM/10 ML UDC PO SCH ×4 (07:38→20:22)
[2019-04-01 08:05] VITALS: BP 115/70
[2019-04-01] MEDS: HYDROCORTISONE 100 MG INJ. IVPush SCH (08:17)
[2019-04-01] MEDS ORDERED: POTASSIUM CHLORIDE 20 MEQ in SODIUM CHLORIDE 0.9% 250 ML IV ONE (10:00)
[2019-04-01 12:11] VITALS: BP 122/72
[2019-04-01 19:21] VITALS: BP 106/61
[2019-04-02 00:38] VITALS: BP 113/66
[2019-04-02 06:03] LABS: ANION GAP 6 mmol/L (5-15); CALCIUM 7.8 mg/dL (8.5-10.1); CHLORIDE 111 mmol/L (98-107); CREATININE 0.79 mg/dL (0.7-1.3)
[2019-04-02 07:18] LABS: BASOPHILS # (AUTO) 0.01 x10^3/uL (0-0.1); BASOPHILS % (AUTO) 0 % (0-1); EOSINOPHILS # (AUTO) 0.04 x10^3/uL (0-0.4); EOSINOPHILS % (AUTO) 1 % (1-7); LYMPHOCYTES % (AUTO) 16 % (22-44); MD NO; MEAN CORPUSCULAR HEMOGLOBIN 30.5 pg (27.5-34.5); MEAN CORPUSCULAR HGB CONC 32.9 g/dL (33.2-36.2); MEAN CORPUSCULAR VOLUME 92.8 fL (81-97); MEAN PLATELET VOLUME 8.3 fL (7.4-10.4); MONOCYTES # (AUTO) 0.42 x10^3/uL (0.2-0.8); MONOCYTES % (AUTO) 7 % (2-9); NEUTROPHILS # (AUTO) 4.92 x10^3/uL (1.8-6.8); NEUTROPHILS % (AUTO) 77 % (42-75); PLATELET COUNT 185 x10^3/uL (130-400); RED BLOOD COUNT 3.27 x10^6/uL (4.38-5.82); RED CELL DISTRIBUTION WIDTH 15.5 % (9.4-14.8)
[2019-04-02 08:18] VITALS: BP 111/68
[2019-04-02] MEDS: SUCRALFATE 1 GM/10 ML UDC PO SCH ×2 (08:55→11:09)
[2019-04-02] MEDS: OMEPRAZOLE 20 MG CAPSULE.DR PO SCH (08:55)
[2019-04-02 12:45] VITALS: BP 122/72
[2019-04-02] MEDS ORDERED: OMEP-110 PO (15:48)
[2019-04-02] MEDS ORDERED: SUCR1ORA5 PO (15:48)
== END 2019-04-02 17:29 | disposition home or self-care (01) | DRG 377 ==
LOC: ED 14:53 → EDIP 15:18 → CCU 15:31 → 4WST 03-28 13:42
PROVIDERS: ADMIT Family Medicine; ATTEND Family Medicine
PROC: B548ZZA Ultrasonography of Superior Vena Cava, Guidance (ICD-10-PCS; 2019-03-27)
PROC: 30233N1 Transfusion of Nonautologous Red Blood Cells into Peripheral Vein, Percutaneous Approach (ICD-10-PCS; 2019-03-27)
PROC: 0DB68ZX Excision of Stomach, Via Natural or Artificial Opening Endoscopic, Diagnostic (ICD-10-PCS; 2019-03-27)
PROC: 3E0G8GC Introduction of Other Therapeutic Substance into Upper GI, Via Natural or Artificial Opening Endoscopic (ICD-10-PCS; 2019-03-27)
PROC: 0DB58ZX Excision of Esophagus, Via Natural or Artificial Opening Endoscopic, Diagnostic (ICD-10-PCS; 2019-03-27)
PROC: 02HV33Z Insertion of Infusion Device into Superior Vena Cava, Percutaneous Approach (ICD-10-PCS; principal; 2019-03-27 16:30)
DX: K26.4 Chronic or unspecified duodenal ulcer with hemorrhage (principal); E43 Unspecified severe protein-calorie malnutrition; D62 Acute posthemorrhagic anemia; E87.2 Acidosis; R53.81 Other malaise; E87.6 Hypokalemia; N40.0 Benign prostatic hyperplasia without lower urinary tract symptoms; K21.0 Gastro-esophageal reflux disease with esophagitis; K44.9 Diaphragmatic hernia without obstruction or gangrene; E78.00 Pure hypercholesterolemia, unspecified; E83.51 Hypocalcemia; E86.9 Volume depletion, unspecified; I50.9 Heart failure, unspecified; I11.0 Hypertensive heart disease with heart failure; K29.60 Other gastritis without bleeding; K29.80 Duodenitis without bleeding; M10.9 Gout, unspecified; Z66 Do not resuscitate; Z93.1 Gastrostomy status; Z68.27 Body mass index [BMI] 27.0-27.9, adult; Z86.73 Personal history of transient ischemic attack (TIA), and cerebral infarction without residual deficits
CPT/HCPCS: 36415; 36430; 36573; 71045; 74021; 74177; 80048; 80053; 80069; 82040; 82533; 83605; 83690; 83735; 84100; 84132; 84134; 84484; 85014; 85018; 85025; 85610; 85730; 86850; 86900; 86923; 87081; 88305; 93005; 96365; 99291; G0378; J2704; J3480; P9047; Q9967; A4648; C1751; C9113; J1720; J3475; J7030; J7040; J7050; P9016

== ENCOUNTER 2019-04-07 12:38 | Emergency (ER) | payer MEDICARE ==
[~2019-04-07] VITALS: Ht 182.9 cm; Wt 78.0 kg
[2019-04-07 12:40] VITALS: BP 133/78
== END 2019-04-07 14:16 | disposition home or self-care (01) ==
LOC: ED 14:10
DX: R53.1 Weakness (principal); Z86.73 Personal history of transient ischemic attack (TIA), and cerebral infarction without residual deficits; E78.00 Pure hypercholesterolemia, unspecified; I10 Essential (primary) hypertension; K21.9 Gastro-esophageal reflux disease without esophagitis; Z90.49 Acquired absence of other specified parts of digestive tract
CPT/HCPCS: 99281; 99285

== ENCOUNTER 2020-11-23 14:26 | Observation (INO) | payer MEDICARE, MEDICAID ==
[~2020-11-23] VITALS: Ht 182.9 cm; Wt 80.3 kg
[~2020-11-23 14:26] MED LIST changes: -ASPI-515 PO; +ASPI-963 PO; -NABU750T PO; +NABU750T7 PO; +SUCR1ORA5 PO
--- NOTE | 2020-11-23 14:59 | NUR ---
PATIENT ARRIVES STATING HIS LEFT LEG "GAVE OUT" AND HE CAN'T WALK ON IT ANYMORE. STATES THAT HE IS UNSURE WHY, AND JUST THAT "IT GAVE OUT". STATES CAN'T WALK.
[2020-11-23 15:48] LABS: BASOPHILS % (AUTO) 1 % (0-1); EOSINOPHILS % (AUTO) 0 % (1-7); LYMPHOCYTES % (AUTO) 13 % (22-44); MEAN CORPUSCULAR HEMOGLOBIN 31.6 pg (27.5-34.5); MEAN CORPUSCULAR HGB CONC 33.8 g/dL (33.2-36.2); MEAN PLATELET VOLUME 9.8 fL (7.4-10.4); MONOCYTES % (AUTO) 8 % (2-9); NEUTROPHILS % (AUTO) 79 % (42-75); PLATELET COUNT 144 x10^3/uL (130-400); RED BLOOD COUNT 4.24 x10^6/uL (4.38-5.82); RED CELL DISTRIBUTION WIDTH 14.4 % (9.4-14.8)
[2020-11-23 15:49] LABS: MD NO
--- NOTE | 2020-11-23 15:51 | NUR ---
STRAIGHT CATH'D PATIENT, GOT 300 CLEAR YELLOW URINE OUT, SENT TO LAB. PATIENT GETTING EKG THEN TO CT SCAN
[2020-11-23 15:59] LABS: ALANINE AMINOTRANSFERASE 33 U/L (12-78); ALBUMIN 3.8 g/dL (3.4-5.0); ANION GAP 7 mmol/L (5-15); CALCIUM 9.4 mg/dL (8.5-10.1); CHLORIDE 109 mmol/L (98-107); CREATININE 1.26 mg/dL (0.7-1.3)
[2020-11-23 16:03] LABS: ALKALINE PHOSPHATASE 83 U/L (45-117); BILIRUBIN,TOTAL 0.6 mg/dL (0.2-1.0); TOTAL PROTEIN 7.2 g/dL (6.4-8.2); TROPONIN I < 0.015 ng/mL (0.000-0.045)
[2020-11-23 16:08] LABS: MICROSCOPIC NOT IND
--- NOTE | 2020-11-23 16:49 | NUR ---
HELPED PATIENT GET DRESSED AND TESTED WALKING, PATIENT WALKS WELL WITH WALKER. STATES FEELS IMPROVED
--- NOTE | 2020-11-23 17:35 | NUR ---
Jd zamora in ED - 11/23/20 at 1738 by GRAEME DISCHARGE REVIEWED WITH PATIENT, SHOWS UNDERSTANDING. NEIGHBOR HERE TO METEOROLOGY PROFESSOR.
--- NOTE | 2020-11-23 17:38 | NUR ---
PATIENT AND HIS NEIGHBOR DISCUSSED SITUATION WITH MD AND PATIENT TO BE ADMITTED FOR REPEATED FALLS, WEAKNESS, FAILURE TO THRIVE.
[2020-11-23] MEDS ORDERED: ASPIRIN 81 MG TABLET CHEW ONE (17:47)
[2020-11-23] MEDS ORDERED: ASPIRIN 325 MG TABLET PO ONE (18:00)
--- NOTE | 2020-11-23 18:37 | NUR ---
PATIENT REPORT GIVEN SBAR TO JANN SOLIMAN. PATIENT IN BED, VSS
[2020-11-23] MEDS ORDERED: ACETAMINOPHEN 325 MG TABLET PO PRN (19:30)
[2020-11-23] MEDS ORDERED: LABETALOL 5MG/ML, 20ML IVPush PRN (19:30)
[2020-11-23] MEDS ORDERED: IBUPROFEN 600 MG TABLET PO PRN (19:30)
[2020-11-23] MEDS ORDERED: ENALAPRILAT 1.25 MG/ML, 2ML IVPush PRN (19:30)
[2020-11-23 20:00] VITALS: BP 106/70
[2020-11-23] MEDS ORDERED: ALLO300T PO (20:55)
[2020-11-23] MEDS: OMEPRAZOLE 20 MG CAPSULE.DR PO SCH (21:00)
[2020-11-23] MEDS: SUCRALFATE 1 GM TABLET PO SCH (21:00)
[2020-11-23] MEDS: LOVASTATIN 40 MG TABLET PO SCH (21:00)
[2020-11-23] MEDS: SODIUM CHLORIDE 0.9% 1,000 ML IV SCH (22:22)
[2020-11-23] MEDS ORDERED: LISI40TA9 PO (22:53)
[2020-11-24 01:08] VITALS: BP 103/63
[2020-11-24] MEDS ORDERED: LIDOCAINE 2%,20 ML JEL.PF.APP MM PRN (03:30)
[2020-11-24 05:01] LABS: AMPHETAMINE SCREEN, URINE Negative (Negative); BARBITURATE SCREEN, URINE Negative (Negative); BENZODIAZEPINE SCREEN, URINE Negative (Negative); CANNABINOID SCREEN, URINE Negative (Negative); COCAINE SCREEN, URINE Negative (Negative); METHADONE SCREEN, URINE Negative (Negative); OPIATE SCREEN, URINE Negative (Negative)
[2020-11-24] MEDS: SODIUM CHLORIDE 0.9% 1,000 ML IV SCH ×3 (06:25→20:51)
[2020-11-24] MEDS: SUCRALFATE 1 GM TABLET PO SCH ×4 (07:00→20:52)
[2020-11-24 07:24] VITALS: BP 114/64
[2020-11-24] MEDS: OMEPRAZOLE 20 MG CAPSULE.DR PO SCH ×2 (10:00→20:52)
[2020-11-24] MEDS: ASPIRIN 81 MG TABLET EC PO SCH (10:02)
[2020-11-24] MEDS: ALLOPURINOL 300 MG TABLET PO SCH (10:02)
[2020-11-24] MEDS: FINASTERIDE 5 MG TABLET PO SCH (10:03)
[2020-11-24 11:34] VITALS: BP 98/63
[2020-11-24 20:04] VITALS: BP 96/57
[2020-11-24] MEDS: LOVASTATIN 40 MG TABLET PO SCH (20:51)
[2020-11-25 00:09] VITALS: BP_SYST 127; BP_SYST 130; BP_SYST 94; BP_DIAS 55; BP_DIAS 78; BP_DIAS 81
[2020-11-25] MEDS: SODIUM CHLORIDE 0.9% 1,000 ML IV SCH ×3 (03:42→15:21)
[2020-11-25] MEDS: SUCRALFATE 1 GM TABLET PO SCH ×2 (05:59→11:54)
[2020-11-25] MEDS: ASPIRIN 81 MG TABLET EC PO SCH (05:59)
[2020-11-25 06:59] VITALS: BP 137/74
[2020-11-25] MEDS: OMEPRAZOLE 20 MG CAPSULE.DR PO SCH (08:45)
[2020-11-25] MEDS: FINASTERIDE 5 MG TABLET PO SCH (08:45)
[2020-11-25] MEDS: ALLOPURINOL 300 MG TABLET PO SCH (08:45)
== END 2020-11-25 16:03 | disposition home or self-care (01) ==
LOC: ED 15:35 → INTOOBSV 17:55 → EDIP 17:55 → 4EST 19:07
PROVIDERS: ADMIT Emergency Medicine; ATTEND Emergency Medicine
DX: R53.1 Weakness (principal); N17.9 Acute kidney failure, unspecified; D64.9 Anemia, unspecified; I65.23 Occlusion and stenosis of bilateral carotid arteries; K21.9 Gastro-esophageal reflux disease without esophagitis; E78.00 Pure hypercholesterolemia, unspecified; I10 Essential (primary) hypertension; R33.9 Retention of urine, unspecified; I27.20 Pulmonary hypertension, unspecified; I49.3 Ventricular premature depolarization; Z79.899 Other long term (current) drug therapy; Z86.73 Personal history of transient ischemic attack (TIA), and cerebral infarction without residual deficits
CPT/HCPCS: 36415; 70450; 70551; 72110; 80053; 80307; 81003; 84484; 85025; 92523; 92610; 93005; 93880; 96360; 96361; 97162; 97166; 99285; G0378; J7030